=== PATIENT | male | born 1985 | race Caucasian/White ===

== ENCOUNTER 2016-09-30 18:50 | Emergency (ER) | payer OTHER ==
[2016-09-30 19:06] VITALS: PULSE 101; TEMP 98.5; BMI 30.9
--- NOTE | 2016-09-30 19:14 | PDOC ---
History of Present Illness - General History Source: Patient Exam Limitations: No Limitations - History of Present Illness Initial Comments: 09/30/16 19:50 A portion of this note was documented by scribe services under my direction. I have reviewed the details of the note, within reason, and agree with the documentation. The case summary and management plan written by me. Assessment and plan: This is a 30-year-old male who comes in complaining of hypertension. Patient does not have history of hypertension however over the last several weeks patient said he has been under a lot of stress secondary to his job and his family and has not been getting enough sleep so he has been drinking multiple cups of caffeinated coffee on a daily basis. Patient decided to days ago that he should stop drinking coffee and has not had any caffeine in almost 48 hours now. Patient said he had a headache yesterday and felt poorly and then today the headache has resolved but he still is not feeling back to his a sling. Patient went out and brought himself a blood pressure monitor and took his blood pressure and it was markedly elevated so he came into the emergency room. On arrival in the emergency room patient blood pressure was 160/ 95. Patient was very anxious and slightly tachycardic. Patient had an EKG done that showed normal sinus rhythm at a rate of [address]-T wave changes Patient denied doing any illegal drugs such as cocaine or street drugs. Patient was reassured that his symptoms most likely were secondary to withdrawal from the large doses of caffeine that he had been taking prior to 2 days ago. Prior to discharge patient's blood pressure was improved to 140/90. Patient was told to follow-up with his primary care doctor next week. Patient discharged home. 09/30/16 19:54 <Adia Pal I - Last Filed: 09/30/16 19:50> - General History Source: Patient Exam Limitations: No Limitations - History of Present Illness Initial Comments: 09/30/16 19:37 The patient is a 30 year old male with no significant past medical history who presents to the ED with complaints of elevated blood pressure as well as complaints of 3 days of headache and dizziness. The patient also complains of mild back pain in between his shoulders. He reports that he decided to buy a blood pressure monitor and that it read at first 140/90, and then read 190/140 which prompted him to come in. In addition, the patient states he has been experiencing new stress with a new job, and has been drinking lots more coffee. He denies any recent illness, fevers, chills, nausea, vomiting, diarrhea, cough , shortness of breath, or chest pain. PAST MEDICAL HISTORY: no significant history PAST SURGICAL HISTORY: no significant history FAMILY HISTORY: no pertinent history. SOCIAL HISTORY: Pt lives with family and is employed. MEDICATIONS: reviewed ALLERGIES: As per nursing notes General: No fevers or chills, no weakness, no weight loss HEENT: No change in vision. No sore throat,. No ear pain CardioVascular: No chest pain or shortness of breath Respiratory:No cough, or wheezing. Gastrointestinal: no nausea, vomiting, diarrhea or constipation, No rectal bleeding Genitourinary: No dysuria, hematuria, or frequency Musculoskeletal: No joint or muscle pain or swelling Neurologic: Present: headache, dizziness No vertigo or loss of consciousness Psychiatric: no depression Skin: No rashes or easy bruising Endocrine: no increased thirst or abnormal weight change Allergic: no skin or latex allergy All other systems reviewed and normal General: Well-nourished well-developed individual, no acute distress HEENT: Throat: Normal, tonsils normal, no erythema or exudate Neck: Supple, no meningeal signs, no lymphadenopathy Eyes::Pupils equal reactive and round, extraocular motion intact Chest: Nontender to palpation Cardiac: S1-S2 normal, regular rate and rhythm, no murmurs rubs or gallops Respiratory: Lungs clear to auscultation bilateral Abdomen: Soft, nondistended, normal bowel sounds, nontender to palpation diffusely Extremities: Warm, dry, no cyanosis, clubbing, or edema Skin: No rashes Neuro: Alert and oriented x3, nonfocal exam, grossly intact, normal gait Psych: Normal mood and affect <Brionna Wooten - Last Filed: 09/30/16 19:55> - General Chief Complaint: Blood Pressure Problem Stated Complaint: HIGH BLOOD PRESSURE Time Seen by Provider: 09/30/16 19:07 Past History - Psycho/Social/Smoking Cessation Hx Anxiety: No Suicidal Ideation: No Smoking History: Never smoked Hx Alcohol Use: Yes (SOCIAL) Drug/Substance Use Hx: No Substance Use Type: None <Adia Pal I - Last Filed: 09/30/16 19:50> <Brionna Wooten - Last Filed: 09/30/16 19:55> - Past Medical History Allergies/Adverse Reactions: Allergies Allergy/AdvReac Type Severity Reaction Status Date / Time No Known Allergies Allergy Verified 09/30/16 19:00 Home Medications: Ambulatory Orders NK [No Known Home Medication] 09/30/16 Review of Systems - Review of Systems Able to Perform ROS?: Yes All Other Systems: Reviewed and Negative <Brionna Wooten - Last Filed: 09/30/16 19:55> *Physical Exam - Vital Signs Last Vital Signs Temp Pulse Resp BP Pulse Ox 98.5 F 101 H 16 158/93 100 09/30/16 19:00 09/30/16 19:00 09/30/16 19:00 09/30/16 19:05 09/30/16 19:00 <Adia Pal I - Last Filed: 09/30/16 19:50> - Vital Signs Last Vital Signs Temp Pulse Resp BP Pulse Ox 98.5 F 101 H 16 158/93 100 09/30/16 19:00 09/30/16 19:00 09/30/16 19:00 09/30/16 19:05 09/30/16 19:00 <Brionna Wooten - Last Filed: 09/30/16 19:55> *DC/Admit/Observation/Transfer - Discharge Dispostion Admit: No <Adia Pal I - Last Filed: 09/30/16 19:50> - Attestations Scribe Attestion: 09/30/16 19:40 Documentation prepared by Brionna Wooten, acting as registered medical transcriptionist for Adia Pal MD. <[email or web address] carvalho - Last Filed: 09/30/16 19:55> Diagnosis at time of Disposition: Caffeine withdrawal - Discharge Dispostion Disposition: HOME Condition at time of disposition: Good - Referrals Referrals: Cristino Torres [Primary Care Provider] - - Patient Instructions Additional Instructions: Return to the emergency department immediately with ANY new, persistent or worsening symptoms. Continue any medications as previously prescribed by your physician. You should follow up with your primary doctor as soon as possible regarding today's emergency department visit. . Please make sure your doctor reviews the results of your emergency evaluation. Thank you for coming to the Emergency Department today for your care. It was a pleasure to see you today. Please note that your evaluation is INCOMPLETE until you follow-up with your doctor.
[2016-09-30 19:51] VITALS: BP 140/89
--- NOTE | 2016-10-01 18:16 | EKG ---
Test Reason : Blood Pressure : / mmHG Vent. Rate : 074 BPM Atrial Rate : 074 BPM P-R Int : 158 ms QRS Dur : 110 ms QT Int : 368 ms P-R-T Axes : 055 065 058 degrees QTc Int : 408 ms NORMAL SINUS RHYTHM NORMAL ECG NO PREVIOUS ECGS AVAILABLE Confirmed by ABDON AREVALO MD ([id number]) on 10/01/2016 6:16:19 PM Referred By: JOE Confirmed By:ABDON AREVALO MD
== END 2016-09-30 19:59 | disposition home or self-care (01) ==
LOC: FER 18:50
DX: F15.93 Other stimulant use, unspecified with withdrawal (principal)
CPT/HCPCS: 93005; 99282-25